=== PATIENT | female | born 1950 | race Hispanic/Latino ===

== ENCOUNTER 2017-01-06 12:04 | Emergency (ER) | payer MEDICARE ==
[2017-01-06 12:39] VITALS: TEMP 98.4; O2SAT 94
[2017-01-06] MEDS ORDERED: methylPREDNISolone SODIUM SUC 125 MG/2 ML VIAL IM ONE (12:50)
--- NOTE | 2017-01-06 12:52 | ED.PDOC ---
History of Present Illness - General Chief Complaint: General Stated Complaint: cough,dizzy Time Seen by Provider: 01/06/17 12:26 Source: patient, RN notes reviewed, Vital Signs reviewed Exam Limitations: no limitations - History of Present Illness Initial Comments: Patient comes in with c/o of cough for 2 weeks and dizziness for 3 days. She originally started with cough, fever, chills, sore throat and sinus congestion. Everything resolved except for the cough. 3 days ago she developed L ear pain and dizziness. Ear pain is improving but still having dizziness with movement. Timing/Duration: other - Improving over past 2 weeks Severity: mild Improving Factors: medication Worsening Factors: movement Associated Symptoms: cough, fever/chills, headaches Allergies/Adverse Reactions: Allergies NO KNOWN ALLERGY Allergy (Verified 11/21/14 20:53) Home Medications: Ambulatory Orders Lisinopril [Prinivil] 20 mg PO DAILY 01/26/14 Cefuroxime Axetil [Ceftin] 500 mg PO TID #21 tab 01/06/17 Review of Systems - Review of Systems Constitutional: States: see HPI EENTM: States: see HPI, ear pain - left, nose congestion - with sinus drainage, throat pain Respiratory: States: cough. Denies: short of breath, stridor, wheezing Cardiology: States: no symptoms reported Gastrointestinal/Abdominal: States: no symptoms reported Musculoskeletal: States: no symptoms reported Skin: States: no symptoms reported Neurological: States: headache - mild, frequent THAKUR's - this seems like a "normal " THAKUR for her. All other Systems: No Change from Baseline Past Medical History (General) - Patient Medical History Hx Congestive Heart Failure: No Hx Hypertension: Yes Hx Diabetes: No Surgical History: Hysterectomy - Vaccination History Hx Influenza Vaccination: No Hx Pneumococcal Vaccination: No - Social History Hx Tobacco Use: Yes Hx Alcohol Use: Yes Hx Substance Use: No Hx Substance Use Treatment: No Hx Depression: No - Female History Patient : No Family Medical History - Family History Mother Family History: No Known Physical Exam - Physical Exam General Appearance: Alert, Comfortable, No apparent distress, Well Developed, Well Groomed, Well Hydrated, Well Nourished Ears, Nose, Throat: hearing grossly normal, abnormal TM (L) - bulging with serous fluid. No erythema, pharyngeal erythema Neck: supple, lymphadenopathy (R), lymphadenopathy (L) Respiratory: lungs clear, normal breath sounds, no respiratory distress, no accessory muscle use Cardiovascular/Chest: regular rate, rhythm, no gallop, no murmur Extremity: normal inspection Neurologic: alert, normal mood/affect, oriented x 3 Skin Exam: normal color, warm/dry Comments: Vital Signs 01/06/17 12:36 Temperature 98.4 F Pulse Rate [ 93 H Left Brachial] Respiratory 20 Rate Blood Pressure 124/73 [Left Arm] O2 Sat by Pulse 94 L Oximetry Progress - Progress Progress: 01/06/17 13:01 Discussed she seems to have a resolving URI but has developed a serous otitis media that is causing her dizziness. Will give Solu-Medrol 125mg IM. Discussed should resolve on own but since it has been 2 weeks with give Rx for antibiotics to start is symptoms are not resolving over 2-4 days or if symptoms worsen. Departure - Departure Clinical Impression: Vertigo Upper respiratory infection Qualifiers: URI type: unspecified viral URI Qualified Code(s): J06.9 - Acute upper respiratory infection, unspecified; B97.89 - Other viral agents as the cause of diseases classified elsewhere Otitis media Qualifiers: Otitis media type: serous Chronicity: acute Laterality: left Recurrence: not specified as recurrent Qualified Code(s): H65.02 - Acute serous otitis media, left ear Time of Disposition: 13:04 Disposition: Discharge to Home or Self Care Condition: Good Departure Forms: ED Discharge - Pt. Copy, Patient Portal Self Enrollment Instructions: Middle Ear Infection, DI for Vertigo Diet: resume usual diet Activity: increase activity as tolerated Referrals: Ronak Angel MD [Primary Care Provider] - 1-2 Weeks Prescriptions: Cefuroxime Axetil [Ceftin] 500 mg PO TID #21 tab Home Medications: Ambulatory Orders Lisinopril [Prinivil] 20 mg PO DAILY 01/26/14 Cefuroxime Axetil [Ceftin] 500 mg PO TID #21 tab 01/06/17
[2017-01-06 13:18] VITALS: BP 111/66
== END 2017-01-06 13:17 | disposition home or self-care (01) ==
LOC: ER 12:04
DX: J06.9 Acute upper respiratory infection, unspecified (principal); H65.02 Acute serous otitis media, left ear; R42 Dizziness and giddiness; I10 Essential (primary) hypertension; Z87.891 Personal history of nicotine dependence

== ENCOUNTER → 2017-01-09 | Outpatient (CLI) | payer MEDICARE | END | disposition home or self-care (01) | LOC: GMAJ 15:01 | PROVIDERS: ATTEND Family Medicine | DX: E78.00 Pure hypercholesterolemia, unspecified (principal); I10 Essential (primary) hypertension ==

== ENCOUNTER → 2017-02-15 | Outpatient (CLI) | payer MEDICARE ==
--- NOTE | 2017-02-17 08:42 | US ---
EXAM DESCRIPTION: Carotid Duplex: Ultrasound. CLINICAL HISTORY: OCCLUSION AND STENOSIS COMPARISON: Bilateral lower extremity arterial Doppler evaluation on the same visit. TECHNIQUE: Transcutaneous scanning utilizing 2-dimensional and Doppler modes to evaluate the bilateral carotid systems and vertebral arteries. Percentage of diameter of stenosis or no stenosis recorded will be based upon NASCET criteria. FINDINGS: Peak systolic/end diastolic (CM-Sec) CCA Right 76/23 Left 90/32. ICA Right proximal 146/49, mid 124/31. Left proximal 67/23, mid 84/24. Vertebral Right 50/13 Left 45/15. ECA (PS Only) Right 106 left 77. ICA/CCA peak systolic ratio: Right 1.9 Left 0.9 ICA/CCA end diastolic ratio: Right 2.2 Left 0.7 Vertebral arteries: antegrade flow. Comments: Atherosclerotic calcification in the distal right CCA and right ICA. Area stenosis in the right CCA bulb is 48%. Diameter stenosis is 84%. Area stenosis in the proximal right ICA is 37%. Diameter stenosis is 41%. Spectral broadening and color turbulent flow in the right CCA bifurcation. Atherosclerotic calcification in the left CCA bifurcation with spectral broadening and color turbulent flow. Area stenosis in the left CCA bulb is 20%. Diameter stenosis is 44%. IMPRESSION: 1. Doppler evaluation of the bilateral carotid systems and vertebral arteries shows no hemodynamically significant stenoses. However, 2-D measurements of the right common carotid bulb indicate 84% diameter stenosis which is above the critical value of 70%. CTA evaluation is recommended. 2. Significant amount of plaque seen in the carotid arteries bilaterally. Bilateral vertebral arteries showed antegrade-cephalad flow. Electronically signed by: Martell Ricci MD 02/17/2017 8:41 AM CDT
--- NOTE | 2017-02-17 08:52 | US ---
EXAM DESCRIPTION: Extremity,Lower [place] Arteries CLINICAL HISTORY: UNSPECIFIED ATHEROSCLEROSIS OF ARTERIES COMPARISON: None. TECHNIQUE: Doppler evaluation of the bilateral lower extremity arterial flow waveforms and velocities. FINDINGS: Arterial waveforms in the right lower extremity are triphasic in the right common femoral artery and distal right femoral artery. Biphasic from the proximal right femoral artery to the peroneal artery. Monophasic in the right posterior tibial artery and dorsalis pedis artery.. Arterial waveforms in the left lower extremity are triphasic in the left common femoral artery. Biphasic from the left superior femoral artery to the left peroneal artery and also in the left dorsalis pedis artery. Monophasic in the left posterior tibial artery.. Comments: None. IMPRESSION: These Doppler measurements indicate possibility of significant atherosclerotic occlusive disease in the right calf with more focal involvement of the left posterior tibial artery as well. Significant loss of velocity in the left posterior tibial artery. Consider follow-up evaluation with CTA of the lower extremities. Electronically signed by: Martell Ricci MD 02/17/2017 8:51 AM CDT
== END | disposition home or self-care (01) ==
LOC: US 09:22
PROVIDERS: ATTEND Family Medicine
DX: I65.22 Occlusion and stenosis of left carotid artery (principal); I70.209 Unspecified atherosclerosis of native arteries of extremities, unspecified extremity

== ENCOUNTER → 2017-02-27 | Outpatient (CLI) | payer MEDICARE | END | disposition home or self-care (01) | LOC: GMAJ 12:07 | PROVIDERS: ATTEND Family Medicine | DX: M25.50 Pain in unspecified joint (principal) ==

== ENCOUNTER 2019-07-25 | Emergency (ER) | payer MEDICARE | END 2019-07-25 21:59 | disposition home or self-care (01) | DX: M54.12 Radiculopathy, cervical region (principal); M25.512 Pain in left shoulder; I25.2 Old myocardial infarction; I10 Essential (primary) hypertension; Z87.891 Personal history of nicotine dependence ==

== ENCOUNTER → 2020-02-26 | Outpatient (CLI) | payer MEDICARE ==
--- NOTE | 2020-02-27 11:31 | CT ---
EXAM DESCRIPTION: CTA Head (accession [id number]), CTA Neck (accession [id number]): Computed Tomography. CLINICAL HISTORY: CAROTID ATHEROSCLEROSIS COMPARISON: CT scan of the brain 2013. MRI scan of the brain October 2015. TECHNIQUE: Spiral, axial 1.25 mm scans through the neck soft tissues and lower and mid brain after bolus infusion of IV contrast. 2.0 mm sagittal and coronal reconstructions. HID MIP images 0.6 mm rotating axis 3D volume rendering images 0.6 mm rotating axis . Percentage of stenosis recorded will be based upon NASCET criteria. Total Exam DLP: 836 mGy-cm. This exam was performed according to our departmental CT dose-optimization program which includes automated exposure control, adjustment of the mA and/or kV according to patient size and/or use of iterative reconstruction technique; to reduce radiation dose to as low as reasonably achievable (ALARA). FINDINGS: Right common carotid normal caliber but common carotid bulb is significantly narrowed by atherosclerotic and intimal wall plaque. Approximately 57 % diameter stenosis. Also intimal wall thickening and significant calcified plaque narrowing the proximal right ICA was 70% diameter stenosis. 35% diameter stenosis of the proximal right ECA. The cervical and petrous segments of the ICA are unremarkable. Atherosclerotic calcification in the carotid siphon with varying degrees of narrowing and 30-35% diameter stenosis. Supraclinoid segment with intimal irregularities. Trifurcation of the vessel form A1 segments of the middle and anterior cerebral arteries and right posterior communicating artery which is minimally narrowed. Proximal right middle and anterior cerebral arteries with no significant narrowing and typical branching. No aneurysm, no vasculitis, no mass effect. Minimal atherosclerosis origin left common carotid remainder of the common carotid unremarkable. Minimal narrowing of the proximal left ICA by atherosclerotic plaque and intimal wall thickening. No significant narrowing in the cervical segment or petrous segment. Intermittent atherosclerotic calcifications and narrowing in the carotid siphon. Approximately 35% diameter stenosis. Trifurcation for the left posterior communicating artery, and the A1 segments of the anterior and middle cerebral arteries is negative. Proximal branches in the left anterior and middle cerebral arteries well visualized and negative. No mass effect, no aneurysms, no vasculitis. Bilateral vertebral arteries with unremarkable origins. Moderate prominence of the right vertebral artery beginning in the vascular foramina of the cervical vertebra. Bilateral PICA vessels are noted. Bilateral AICA vessels are noted and bilateral superior cerebellar arteries present. Basilar artery courses to the right of midline deforming the right posterior cerebral artery joining with the right posterior communicating artery. Small remnant from the basilar joints the dominant left posterior communicating artery to form the left posterior cerebral artery. No aneurysms, no stenoses, and no mass effect or vasculitis. Venogram phase of the study shows no abnormal dilation, filling defect/thrombosis or venous occlusion. Minimal prominence of the cortical sulci and subdural spaces, and ventricles and cisterns are physiologic for the patient's age with no mass effect or effacement. No midline shift. No abnormal enhancement. No large parenchymal, intraventricular, subarachnoid, subdural, or epidural mass or hemorrhage. No subfalcine or tonsillar herniation. No abnormal calcifications. Calvarium is intact with slight decrease in bone density. Visualized mastoid and paranasal air cells showing no significant mucosal thickening or air-fluid levels. No significant airway effacement or displacement. No parapharyngeal or paraesophageal, or paratracheal asymmetry. Symmetric enhancement in the thyroid gland. No paracervical mass or enlarged nodes. 11 x 10 x 7 mm lymph node in the right carotid space and 14 x 10 x 7 mm lymph node in the left carotid space. Margins are minimally ill-defined but no fatty stranding or fluid collection. Salivary glands symmetric and not enlarged. No enlarged nodes in the upper mediastinum. Atherosclerotic calcifications in the aorta. A 3 mm nodule right lung apex. Bilateral pleural-parenchymal scarring. No acute infiltrate pneumothorax or pleural effusion. Arthrosis atlantoaxial joint and the cervical spine. Spondylosis at C3-C4, C4-C5, C5-C6, and C6-C7. With unilateral or bilateral neural foraminal narrowing which is significantly several levels. Multiple levels of facet arthrosis. Sternoclavicular arthrosis bilaterally. IMPRESSION: 1. 70% diameter stenosis of the proximal right ICA, involving atherosclerotic plaque and intimal thickening. 57% diameter stenosis of the right common carotid bulb, also calcified plaque and intimal thickening. Bilateral 30-35% diameter stenosis in the carotid siphons. No mass effect, no aneurysm, and no intracranial vasculitis. 2. Partial venogram showing no abnormal dilation, thrombosis, or occlusion. 3. Bilateral reactive appearing mildly enlarged lymph nodes in the carotid spaces. No enhancing soft tissue mass, no airway abnormality. Correlate with clinical history. 4. 3 mm nodule in the right lung apex is not clinically significant. Entire lung was not scanned. 5. Multiple levels of spondylosis, unilateral/bilateral neural foraminal narrowing, significant at some levels. Multiple levels of facet arthrosis. Correlate for upper extremity radiculopathy. Electronically signed by: Martell Ricci MD 02/27/2020 11:30 AM CDT
== END ==
LOC: CT 08:57
DX: Z01.812 Encounter for preprocedural laboratory examination (principal); I65.21 Occlusion and stenosis of right carotid artery; R59.0 Localized enlarged lymph nodes; R91.1 Solitary pulmonary nodule; M47.892 Other spondylosis, cervical region; M48.02 Spinal stenosis, cervical region

== ENCOUNTER 2020-03-15 10:23 | Emergency (ER) | payer MEDICARE ==
--- NOTE | 2020-03-15 11:09 | RAD ---
EXAM DESCRIPTION: Chest,1 View CLINICAL HISTORY: tremor, cea postop 3 days COMPARISON: Chest radiograph dated July 25, 2019 TECHNIQUE: One view radiograph of the chest FINDINGS: Postsurgical changes of the right neck. Calcific atherosclerosis of the aortic arch. Cardiac silhouette shows normal heart size. Pulmonary vascularity is within normal limits. Linear opacities in the bilateral lung bases most compatible with atelectasis. Otherwise, lungs show no confluent infiltrates. Costophrenic angles are sharp. No pneumothorax. No acute osseous abnormality. IMPRESSION: 1. Minimal bibasilar atelectasis. Otherwise, lungs show no confluent infiltrates. 2. Other findings as above. Electronically signed by: Александр Arzola MD 03/15/2020 11:07 AM ANALYTICS LEADER
--- NOTE | 2020-03-15 12:27 | ED.PDOC ---
History of Present Illness - General Chief Complaint: General Stated Complaint: Patient believes right eyelid is drooping Time Seen by Provider: 03/15/20 10:34 Source: patient Exam Limitations: no limitations - History of Present Illness Initial Comments: The patient is a 70-year-old female presenting to the emergency room secondary to possibility of a mild droop to the right eyelid. It is not apparent upon arrival here. No other neurological changes. No difficulty with speech. No difficulty or asymmetry in facial movements. No difficulty swallowing. No difficulty moving extremities. The patient had a carotid endarterectomy done on the same side 3 days ago. There is some mild swelling around that as would be expected. There is some mild erythema but none more than expected. No fever. No nausea vomiting or diarrhea. The patient does have a tremor but apparently there is a history of a baseline tremor. No altered mental state. She did eat this morning. No fever. Timing/Duration: 1-3 hours Severity: mild Improving Factors: nothing Worsening Factors: nothing Associated Symptoms: denies symptoms Allergies/Adverse Reactions: Allergies NO KNOWN ALLERGY Allergy (Verified 03/15/20 10:50) Home Medications: Ambulatory Orders Lisinopril [Prinivil] 20 mg PO DAILY 01/26/14 Aspirin [Aspirin 81 Low Dose] 81 mg PO DAILY 03/15/20 Atorvastatin Calcium 40 mg PO DAILY 03/15/20 Clopidogrel Bisulfate [Plavix] 75 mg PO DAILY 03/15/20 Review of Systems - Review of Systems Constitutional: States: no symptoms reported EENTM: States: no symptoms reported Respiratory: States: no symptoms reported Cardiology: States: no symptoms reported Gastrointestinal/Abdominal: States: no symptoms reported Genitourinary: States: no symptoms reported Musculoskeletal: States: no symptoms reported Skin: States: see HPI Neurological: States: see HPI, anxiety Endocrine: States: no symptoms reported All other Systems: No Change from Baseline Past Medical History (General) - Patient Medical History Hx Seizures: No Hx Stroke: No Hx Dementia: No Hx Asthma: No Hx of COPD: No Hx Cardiac Disorders: Yes - Hx [place], unsure when Hx Congestive Heart Failure: No Hx Pacemaker: No Hx Hypertension: Yes Hx Thyroid Disease: No Hx Diabetes: No Hx Gastroesophageal Reflux: No Hx Renal Disease: No Hx Cancer: No Hx of HIV: No Hx Hepatitis C: No Hx MRSA: No Surgical History: Hysterectomy - Vaccination History Hx Influenza Vaccination: No Hx Pneumococcal Vaccination: Yes - Social History Hx Tobacco Use: Yes Hx Alcohol Use: Yes - occ Hx Substance Use: No Hx Substance Use Treatment: No Hx Depression: No - Female History Patient is a Female of Child Bearing Age (10 -59 yrs old): No Patient : No Family Medical History - Family History Mother Family History: No Known Physical Exam - Physical Exam General Appearance: Alert, Anxious, No apparent distress Eye Exam: bilateral normal Ears, Nose, Throat: hearing grossly normal, normal pharynx Neck: other - Mild swelling to the right side of the neck surrounding the CEA site. There is mild bruising as would be expected. Mild erythema as would be expected. No significant drainage. Respiratory: lungs clear, normal breath sounds, no respiratory distress, no accessory muscle use Cardiovascular/Chest: normal peripheral pulses, regular rate, rhythm - Borderline tachycardia, no edema Peripheral Pulses: radial,right: 2+, radial,left: 2+, dorsalis pedis,right: 2+, dorsalis pedis,left: 2+ Gastrointestinal/Abdominal: non tender, soft Rectal Exam: deferred Back Exam: no CVA tenderness, no vertebral tenderness Extremity: normal range of motion, non-tender, normal inspection, no pedal edema, normal capillary refill Neurologic: plugger II-XII nml as tested, alert, oriented x 3, other - The patient is highly anxious and does have a baseline tremor in her hands. Skin Exam: normal color - Except for bruising around the surgery site Comments: Vital Signs - 24 hr 03/15/20 03/15/20 03/15/20 10:43 10:55 11:07 Temperature 98.3 F Pulse Rate [ 118 H 116 H 107 H Right] Respiratory 24 Rate Blood Pressure 148/99 163/83 [Right Arm] O2 Sat by Pulse 99 98 Oximetry 03/15/20 11:08 Temperature Pulse Rate [ 110 H Right] Respiratory Rate Blood Pressure 140/72 [Right Arm] O2 Sat by Pulse 97 Oximetry Progress - Progress Progress: 03/15/20 12:29 The patient is a 70-year-old female presented emergency room primarily due to concern for a droop to the right eyelid. I do not believe there is any neurological deficit. She does have very mild edema to that side of the face likely due to swelling around the operative site. This will likely improve as the day goes on. Again I see no evidence of any new neurological deficits. The patient does have a very mild sinus tachycardia and vital signs are very mildly positive for a drop in blood pressure with standing. I am not going to add any IV fluids for now I do want her to drink fairly aggressively for the next 2 days however. Laboratory work is reassuring as is the chest x-ray. EKG shows a normal sinus tachycardia. The patient does have a mild elevation of her blood sugar which may be a stress response in relation to the surgery. This does need to be followed with her primary care doctor in the coming week. Follow-up with primary care doctor in the coming week. ER warnings are given for any obvious worsening. martha thompson [phone] - Results/Orders Results/Orders: Chest x-ray is clear. Rapid coronavirus test is negative. EKG shows sinus tachycardia at around 110 bpm. Normal axis. Normal R wave progression. Possible very early right bundle branch block. No ST segment or T wave changes indicative of acute ischemia. Normal QT interval. Laboratory Tests 03/15/20 03/15/20 03/15/20 10:57 10:57 11:52 WBC 6.8 RBC 4.03 L Hgb 12.7 Hct 37.2 MCV 92.2 MCH 31.4 H MCHC 34.1 RDW 13.3 Plt Count 280 MPV 9.8 Absolute Neuts (auto) 4.80 Absolute Lymphs (auto) 1.50 Absolute Monos (auto) 0.30 Absolute Eos (auto) 0.20 Absolute Basos (auto) 0.10 Neutrophils % 70.3 Lymphocytes % 21.7 Monocytes % 4.4 Eosinophils % 2.3 Basophils % 1.3 Sodium 138 Potassium 4.3 Chloride 96 L Carbon Dioxide 30 Anion Gap 16.3 BUN 18 Creatinine 0.80 BUN/Creatinine Ratio 22.5 H Random Glucose 241 H Serum Osmolality 285.5 Calcium 9.7 Magnesium 1.7 L Total Bilirubin 0.8 AST 17 ALT 13 Alkaline Phosphatase 112 Creatine Kinase 51 CK-MB (CK-2) 1.0 CK-MB (CK-2) % Not Reportable Troponin I < 0.02 B-Natriuretic Peptide 87.7 Serum Total Protein 7.6 Albumin 4.2 Globulin 3.4 Albumin/Globulin Ratio 1.2 TSH 1.85 Urine Color Yellow Urine Appearance Clear Urine pH 8.5 H Ur Specific [place] 1.020 Urine Protein Negative Urine Glucose (UA) 500 H Urine Ketones Trace Urine Blood Small H Urine Nitrite Negative Urine Bilirubin Negative Urine Urobilinogen 1.0 Ur Leukocyte Esterase Negative Urine RBC 1-3 Urine WBC 0 Ur Epithelial Cells 1-3 Urine Bacteria 0 - EKG/XRAY/CT CT Ordered: No Departure - Departure Clinical Impression: Facial edema, Sinus tachycardia, Hyperglycemia Disposition: Discharge to Home or Self Care Condition: Fair Departure Forms: ED Discharge - Pt. Copy, Patient Portal Self Enrollment Diet: regular diet Activity: increase activity as tolerated Referrals: Ronak Angel MD [Primary Care Provider] - 1-2 Weeks Home Medications: Ambulatory Orders Lisinopril [Prinivil] 20 mg PO DAILY 01/26/14 Aspirin [Aspirin 81 Low Dose] 81 mg PO DAILY 03/15/20 Atorvastatin Calcium 40 mg PO DAILY 03/15/20 Clopidogrel Bisulfate [Plavix] 75 mg PO DAILY 03/15/20 Additional Instructions: The patient is a 70-year-old female presented emergency room primarily due to concern for a droop to the right eyelid. I do not believe there is any neurological deficit. She does have very mild edema to that side of the face likely due to swelling around the operative site. This will likely improve as the day goes on. Again I see no evidence of any new neurological deficits. The patient does have a very mild sinus tachycardia and vital signs are very mildly positive for a drop in blood pressure with standing. I am not going to add any IV fluids for now I do want her to drink fairly aggressively for the next 2 days however. Laboratory work is reassuring as is the chest x-ray. EKG shows a normal sinus tachycardia. The patient does have a mild elevation of her blood sugar which may be a stress response in relation to the surgery. This does need to be followed with her primary care doctor in the coming week. Follow-up with primary care doctor in the coming week. ER warnings are given for any obvious worsening.
[2020-03-15 13:03] VITALS: O2SAT 99
[2020-03-15 13:07] VITALS: BP 145/75; TEMP 98
== END 2020-03-15 12:46 | disposition home or self-care (01) ==
LOC: ER 10:23
DX: R60.0 Localized edema (principal); R00.0 Tachycardia, unspecified; R73.9 Hyperglycemia, unspecified; I25.2 Old myocardial infarction; I10 Essential (primary) hypertension; F17.200 Nicotine dependence, unspecified, uncomplicated; Z98.890 Other specified postprocedural states; Z79.899 Other long term (current) drug therapy; Z79.82 Long term (current) use of aspirin

== ENCOUNTER 2020-03-26 16:43 | Observation (INO) | payer MEDICARE ==
[2020-03-26] MEDS ORDERED: SODIUM CHLORIDE 0.9% 1000ML 500 ML IVS ONE (17:13)
[2020-03-26] MEDS ORDERED: SODIUM CHLORIDE 0.9% 1000ML 1,000 ML IVS ONE (17:46)
[2020-03-26] MEDS ORDERED: PANTOPRAZOLE SODIUM IV 40 MG VIAL IV ONE (17:47)
[2020-03-26] MEDS ORDERED: SUCRALFATE 1 GM/10 ML 1 GM UD PO ONE (17:47)
--- NOTE | 2020-03-26 17:48 | RAD ---
EXAM: Chest,1 View CLINICAL INDICATION: 70-year-old female with shortness of breath. TECHNIQUE: Single view, AP portable chest was obtained. COMPARISON: 03/15/2020. FINDINGS: Stable cardiac and mediastinal silhouette. Heart size is normal. Lungs are clear without focal opacity, pneumothorax or pleural effusions. The visualized bones reveal diffuse demineralization and degenerative change. Stable appearance of subcentimeter focus of sclerosis within the proximal LEFT humeral head raising the possibility of enchondroma, bone island or other bony sclerosis, on examination dated 07/25/2019 appears to be slightly external to the cortex raising the possibility of soft tissue calcification or tendon calcification. This finding appears to be new since examination dated 07/25/2013. IMPRESSION: No acute cardiopulmonary abnormalities. Electronically signed by: Suly Staples MD 03/26/2020 5:47 PM PHYSICIAN INTENSIVIST
--- NOTE | 2020-03-26 19:09 | CT ---
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 PROCEDURE: Contrast-enhanced images of the abdomen and pelvis were performed utilizing 2 mm slice thickness at 2 mm interval reconstruction from the lung bases to the ischial tuberosities after the administration of IV contrast. No dosing was provided for interpretation. In addition multiplanar reformats in the coronal and sagittal plane were obtained and reviewed. An individualized dose optimization technique, Automated Exposure Control, was utilized for the performed procedure. FINDINGS: The lung bases demonstrate to be clear. Noted is the presence of a small hiatal hernia. The liver, pancreas, spleen and adrenal glands demonstrate to be unremarkable, no focal lesions are noted. The gallbladder demonstrate to be partially distended with dense material within the gallbladder fundus corresponding to cholelithiasis. No significant gallbladder wall thickening and/or dilatation of the common bile duct. The kidneys demonstrate normal uptake of contrast media. No hydronephrosis and/or stones were identified. Grossly the unopacified stomach, small bowel and large bowel demonstrate to be within normal limits. Fecal residue and underdistention within the large bowel limits the evaluation. Scattered diverticuli are noted within the sigmoid colon. The appendix is normal. The urinary bladder demonstrate to be unremarkable. The uterus is absent. The aorta demonstrate atherosclerotic disease extending into the aortic bifurcation with focal areas of significant plaque at the proximal common iliac arteries. There is no retroperitoneal lymphadenopathy. There is no evidence for ascites and/or significant abnormal fluid collections. The bone windows demonstrate bony osteopenia. Degenerative disc disease is identified at L4/L5 disc level with posterior facet hypertrophy at L3-S1. IMPRESSION: CHOLELITHIASIS. ATHEROSCLEROTIC DISEASE OF THE AORTA. DIVERTICULOSIS WITH NO EVIDENCE FOR DIVERTICULITIS. STATUS POST HYSTERECTOMY. NORMAL APPENDIX. NO ACUTE INTRA-ABDOMINAL PROCESS. Electronically signed by: Александр Paulino MD 03/26/2020 7:08 PM CANOE INSPECTOR
--- NOTE | 2020-03-26 20:19 | ED.PDOC ---
History of Present Illness - General Chief Complaint: Post Op Problems Stated Complaint: weakness, shortness of breath Time Seen by Provider: 03/26/20 16:47 Source: patient Exam Limitations: no limitations - History of Present Illness Initial Comments: The patient is a 70-year-old female presented emergency room secondary to feeling dizzy and short of breath today. Additionally she has been having what appears to be melena for the last 3 days. The patient was started on aspirin and Plavix after a carotid endarterectomy about 2 weeks ago. No chest pain. No syncope. She did get dizzy today. No palpitations. No new swelling. No stroke symptoms. No runny nose or sore throat. No dov red blood per rectum. No abdominal pain. No history of any recent stomach ulcers. Timing/Duration: other - Around 3 days Severity: mild Improving Factors: nothing Worsening Factors: nothing Associated Symptoms: malaise, shortness of breath, weakness Allergies/Adverse Reactions: Allergies NO KNOWN ALLERGY Allergy (Verified 03/15/20 10:50) Home Medications: Ambulatory Orders Lisinopril [Prinivil] 20 mg PO DAILY 01/26/14 Aspirin [Aspirin 81 Low Dose] 81 mg PO DAILY 03/15/20 Atorvastatin Calcium 40 mg PO DAILY 03/15/20 Clopidogrel Bisulfate [Plavix] 75 mg PO DAILY 03/15/20 Review of Systems - Review of Systems Constitutional: States: malaise, weakness - Generalized EENTM: States: no symptoms reported Respiratory: States: see HPI, short of breath Cardiology: States: no symptoms reported Gastrointestinal/Abdominal: States: see HPI Genitourinary: States: no symptoms reported Musculoskeletal: States: no symptoms reported Skin: States: no symptoms reported Neurological: States: see HPI Endocrine: States: no symptoms reported All other Systems: No Change from Baseline Past Medical History (General) - Patient Medical History Hx Seizures: No Hx Stroke: No Hx Dementia: No Hx Asthma: No Hx of COPD: No Hx Cardiac Disorders: Yes - Hx [place], unsure when Hx Congestive Heart Failure: No Hx Pacemaker: No Hx Hypertension: Yes Hx Thyroid Disease: No Hx Diabetes: No Hx Gastroesophageal Reflux: No Hx Renal Disease: No Hx Cancer: No Hx of HIV: No Hx Hepatitis C: No Hx MRSA: No - Vaccination History Hx Influenza Vaccination: No Hx Pneumococcal Vaccination: Yes - Social History Hx Tobacco Use: Yes Hx Alcohol Use: Yes - occ Hx Substance Use: No Hx Substance Use Treatment: No Hx Depression: No - Female History Patient : No Family Medical History - Family History Mother Family History: No Known Physical Exam - Physical Exam General Appearance: Alert, Frail, Ill Appearing Eye Exam: bilateral normal Ears, Nose, Throat: hearing grossly normal, normal pharynx Neck: non-tender, supple Respiratory: lungs clear, normal breath sounds, no respiratory distress, no accessory muscle use Cardiovascular/Chest: normal peripheral pulses, regular rate, rhythm, no edema Peripheral Pulses: radial,right: 2+, radial,left: 2+ Gastrointestinal/Abdominal: non tender, soft Rectal Exam: deferred Back Exam: no CVA tenderness, no vertebral tenderness Extremity: normal range of motion, non-tender, normal inspection, no pedal edema, normal capillary refill Neurologic: code enforcement officer II-XII nml as tested, alert, normal mood/affect, oriented x 3 Skin Exam: normal color Comments: Vital Signs - 24 hr 03/26/20 03/26/20 03/26/20 16:47 17:30 17:34 Temperature 98.3 F Pulse Rate [ 93 H 87 83 left brachial] Respiratory 24 16 16 Rate Blood Pressure 110/77 121/80 110/70 [left brachial] O2 Sat by Pulse 97 Oximetry 03/26/20 03/26/20 03/26/20 17:36 18:43 19:00 Temperature Pulse Rate [ 93 H 84 82 left brachial] Respiratory 16 16 16 Rate Blood Pressure 105/87 135/79 141/60 [left brachial] O2 Sat by Pulse 95 95 Oximetry 03/26/20 20:00 Temperature Pulse Rate [ 96 H left brachial] Respiratory 16 Rate Blood Pressure 113/68 [left brachial] O2 Sat by Pulse 96 Oximetry Progress - Progress Progress: 03/26/20 20:20 The patient is a 70-year-old female presented emergency room secondary to what is most likely melena from an upper GI bleed. The patient is feeling much better after a liter and a half of crystalloid. Blood pressures have improved. The patient has not had any melanotic or bloody bowel movements since her arrival here. Her vascular surgeon, Dr. Sinha, was contacted and is okay with her going off of the aspirin and Plavix at least short-term. The patient can be restarted back on the aspirin after the weekend. The patient is being started on Carafate and Protonix as well. Dr. Amaro has been contacted and made aware of the patient here as well. The patient will be admitted for further monitoring. It is expected that the patient's H&H will likely continue to decrease slightly over the next few days as the blood thinners wears off. It is likely that she will require a unit or 2 of packed red blood cells before she is able to go home. She will likely be set up for endoscopy as an outpatient as long as that is the case. Obviously if the patient develops uncontrollable bleeding, then she will have to be sent for an emergent endoscopy. Obviously transfer options are extremely limited at this time given the burden of coronavirus on hospitals in the region. For this reason the patient has not being transferred for specialty evaluation at this time. This has been discussed with the patient as well as with our general surgeon and hospitalist. The patient will be admitted for continued care. martha thompson [id number] 03/26/20 20:26 - Results/Orders Results/Orders: CT scan abdomen pelvis shows no acute pathology. See report for details. Chest x-ray shows no definitive acute pathology. EKG shows sinus tachycardia at 102 bpm. Normal axis. Q waves in inferior leads. Normal R wave progression. Normal QT interval. No ST segment or T wave changes indicative of acute ischemia. Laboratory Tests 03/26/20 03/26/20 03/26/20 17:34 17:34 17:34 WBC 7.8 RBC 2.98 L Hgb 9.6 L Hct 27.3 L MCV 91.5 MCH 32.1 H MCHC 35.0 RDW 13.8 Plt Count 314 MPV 9.9 Absolute Neuts (auto) 4.90 Absolute Lymphs (auto) 2.00 Absolute Monos (auto) 0.50 Absolute Eos (auto) 0.20 Absolute Basos (auto) 0.20 H Neutrophils % 62.8 Lymphocytes % 25.2 Monocytes % 6.5 Eosinophils % 3.1 Basophils % 2.4 H PT 9.7 INR < 1.00 PTT (SP) 23.6 Sodium 136 Potassium 4.3 Chloride 100 L Carbon Dioxide 27 Anion Gap 13.3 BUN 32 H Creatinine 1.05 BUN/Creatinine Ratio 30.5 H Random Glucose 123 H Serum Osmolality 280.2 Lactic Acid Calcium 9.4 Magnesium 1.8 Total Bilirubin 0.3 AST 13 ALT 10 Alkaline Phosphatase 98 Creatine Kinase 30 CK-MB (CK-2) 0.9 CK-MB (CK-2) % Not Reportable Troponin I < 0.02 B-Natriuretic Peptide 19.3 Serum Total Protein 6.6 Albumin 3.7 Globulin 2.9 Albumin/Globulin Ratio 1.3 Lipase 36 TSH 3.74 Urine Color Urine Appearance Urine pH Ur Specific [place] Urine Protein Urine Glucose (UA) Urine Ketones Urine Blood Urine Nitrite Urine Bilirubin Urine Urobilinogen Ur Leukocyte Esterase Urine RBC Urine WBC Ur Epithelial Cells Urine Bacteria Stool Occult Blood 03/26/20 03/26/20 03/26/20 17:34 18:00 18:53 WBC RBC Hgb Hct MCV MCH MCHC RDW Plt Count MPV Absolute Neuts (auto) Absolute Lymphs (auto) Absolute Monos (auto) Absolute Eos (auto) Absolute Basos (auto) Neutrophils % Lymphocytes % Monocytes % Eosinophils % Basophils % PT INR PTT (SP) Sodium Potassium Chloride Carbon Dioxide Anion Gap BUN Creatinine BUN/Creatinine Ratio Random Glucose Serum Osmolality Lactic Acid 1.2 Calcium Magnesium Total Bilirubin AST ALT Alkaline Phosphatase Creatine Kinase CK-MB (CK-2) CK-MB (CK-2) % Troponin I B-Natriuretic Peptide Serum Total Protein Albumin Globulin Albumin/Globulin Ratio Lipase TSH Urine Color Yellow Urine Appearance Clear Urine pH 6.5 Ur Specific [place] 1.020 Urine Protein Negative Urine Glucose (UA) Negative Urine Ketones Negative Urine Blood Negative Urine Nitrite Negative Urine Bilirubin Negative Urine Urobilinogen 0.2 Ur Leukocyte Esterase Negative Urine RBC 1-3 Urine WBC 0 Ur Epithelial Cells 5-10 Urine Bacteria Rare Stool Occult Blood Positive H Departure - Departure Clinical Impression: Upper GI bleed Disposition: Admit Patient Departure Forms: ED Discharge - Pt. Copy, Patient Portal Self Enrollment Referrals: Rnoak Angel MD [Primary Care Provider] - 1-2 Weeks Home Medications: Ambulatory Orders Lisinopril [Prinivil] 20 mg PO DAILY 01/26/14 Aspirin [Aspirin 81 Low Dose] 81 mg PO DAILY 03/15/20 Atorvastatin Calcium 40 mg PO DAILY 03/15/20 Clopidogrel Bisulfate [Plavix] 75 mg PO DAILY 03/15/20 Decision To Admit - Decistion To Admit Decision to Admit Reason: Medical Nature Decision to Admit Date: 03/26/20 Decision to Admit Time: 20:25
--- NOTE | 2020-03-26 21:59 | HP ---
SUPERVISING PHYSICIAN: Maxime Saldaña MD CHIEF COMPLAINT: Dizzy and abdominal pain with bloody stools. HISTORY OF PRESENT ILLNESS: This is a 70-year-old female patient who came to the Emergency Room today due to some dizziness as well as concerns about the blood in her stool. About two weeks ago, she had a right carotid endarterectomy per Dr. Dutta at [place]. She has had melena for the last three days. Postoperatively, she was put on Plavix and aspirin. Today, she was somewhat dizzy, but there were no complications, no stroke-like symptoms. She came to the Emergency Room and her vital signs were temperature 98.3, heart rate 93, blood pressure 110/77, respiratory rate 24, O2 saturation 97%. Lab studies showed WBC 7.8, hemoglobin 9.6, hematocrit 27.3. About three hours after her CBC was drawn, another H&H was done and it was 9.4 and 27.2. Her coagulation studies were within normal limits. Her electrolytes were basically within normal limits. Liver enzymes were unremarkable. TSH 3.74. Urinalysis was unremarkable. Stool for occult blood was positive. Her chest x-ray showed no acute cardiopulmonary abnormalities. Her abdominal CT showed cholelithiasis, atherosclerotic disease of the aorta, diverticulosis with no evidence for diverticulitis, status post hysterectomy, normal appendix, no acute intraabdominal process. Dr. Saldaña in the Emergency Room called Dr. Dutta and he felt that we could monitor here at the hospital and there were no available rooms in the surrounding area. Dr. Saldaña also called Dr. Amaro and said if absolutely needed, an upper GI could be done tomorrow here at our hospital. The patient was given some Protonix and fluids as well as some sucralfate and she was placed in observation in the hospital. PAST MEDICAL HISTORY: 1. Hyperlipidemia. 2. Hypertension. PAST SURGICAL HISTORY: 1. Hysterectomy. 2. Right carotid endarterectomy. OUTPATIENT MEDICATIONS: 1. Aspirin. 2. Calcium. 3. Plavix. 4. Vitamin D2. 5. Atorvastatin. 6. Lisinopril. ALLERGIES: NO KNOWN DRUG ALLERGIES. SOCIAL HISTORY: She lives in [place]. She is . She has a history of tobacco use. She drinks alcohol on a social basis. There is no history of illegal drug use. REVIEW OF SYSTEMS: GENERAL: Positive for fatigue, negative for weight changes. HEENT: Negative for sinus symptoms, ear pain, vision changes or sore throat. RESPIRATORY: Negative for wheezing, coughing or shortness of breath. CARDIAC: Negative for chest pain, palpitations or tachycardia. GASTROINTESTINAL: As per history of present illness. GENITOURINARY: Negative for hematuria, dysuria or polyuria. MUSCULOSKELETAL: Negative for arthralgias, myalgias. SKIN: Negative for lesions or rashes. NEUROLOGIC: Positive for dizziness. Negative for headache or seizures. PHYSICAL EXAMINATION: VITAL SIGNS: Temperature 97.5, heart rate 99, blood pressure 113/69, respiratory rate 18, O2 saturation 98% on room air. GENERAL: This is a 70-year-old female who is lying in her hospital bed. She is in no acute distress. HEENT: Normocephalic, atraumatic. Pupils are equal and reactive. Oropharynx is clear. NECK: Supple without mass. She has the right carotid endarterectomy. RESPIRATORY: Essentially clear to auscultation bilaterally. CARDIOVASCULAR: Regular rate and rhythm. GASTROINTESTINAL: Abdomen is soft, nondistended, nontender. Bowel sounds are positive. RECTAL: Deferred. BACK: Deferred. EXTREMITIES: No cyanosis, clubbing or edema. NEUROLOGIC: Awake, alert and oriented times three. SKIN: Warm, pink and dry. LABORATORY: Labs and films are as per history of present illness. IMPRESSION: 1. Upper gastrointestinal bleed. 2. Recent right carotid endarterectomy on Plavix and aspirin postoperatively. 3. Hypertension. 4. Hyperlipidemia. PLAN: The patient has been placed in observation. I will do q.4h. H&Hs and we will monitor her labs closely. I have done morning lab. If we have any issues, we can call Dr. Dutta in [place]. Right now, she is fairly stable. I have done routine admission guidelines. She will be on Protonix for ulcer prophylaxis. I will hold on any anticoagulants for DVT prophylaxis. According to Dr. Dutta, the patient should have her Plavix and aspirin held and her aspirin can be re-started on Monday or Monday. She is to call him for a followup appointment as soon as she is discharged. We will follow and treat as needed. #[id number] [facility]
[2020-03-26] MEDS ORDERED: ACETAMINOPHEN 325 MG TAB PO PRN (23:09)
[2020-03-26] MEDS ORDERED: ONDANSETRON INJ 4 MG/2 ML VIAL IV PRN (23:09)
[2020-03-26] MEDS ORDERED: SODIUM CHLORIDE 0.9% (FLUSH) 10 ML SYG IV PRN (23:09)
[2020-03-26] MEDS ORDERED: IV SET AND CAP CHANGE INJ INJ SCH (23:30)
[2020-03-27] MEDS ORDERED: PANTOPRAZOLE SODIUM IV 40 MG VIAL IV SCH (06:30)
[2020-03-27] MEDS ORDERED: LISINOPRIL 10 MG TAB ONE (08:51)
[2020-03-27] MEDS ORDERED: NON-FORMULARY MEDICATION 1 EA MIS (Lisinopril [Prinivil] 20 MG) PO SCH (09:00)
[2020-03-27] MEDS ORDERED: LISINOPRIL 10 MG TAB PO SCH (09:00)
[2020-03-27] MEDS ORDERED: SODIUM CHLORIDE 0.9% (FLUSH) 10 ML SYG IV SCH (09:00)
[2020-03-27] MEDS ORDERED: NON-FORMULARY MEDICATION 1 EA MIS (Atorvastatin Calcium [Atorvastatin Calcium] 40 MG) PO SCH (09:00)
[2020-03-27 10:08] VITALS: O2SAT 98
[2020-03-27 14:31] VITALS: BP 112/71; TEMP 97.7
--- NOTE | 2020-03-28 13:27 | DS ---
SUPERVISING PHYSICIAN: Maxime Saldaña MD ADMISSION DIAGNOSES: 1. Upper gastrointestinal bleed. 2. Recent right carotid endarterectomy on Plavix and aspirin postoperatively. 3. Hypertension. 4. Hyperlipidemia. DISCHARGE DIAGNOSES: 1. Upper gastrointestinal bleed, referred to Dr. Amaro for further workup as an outpatient. 2. Diverticulosis as noted on CT without any evidence of diverticulitis. 3. Cholelithiasis without any CT findings findings to indicate acute cholecystitis. 4. Recent right carotid endarterectomy on Plavix and aspirin postoperatively. 5. Hypertension. 6. Hyperlipidemia. REASON FOR HOSPITALIZATION: This is a 70-year-old female patient who came to the Emergency Room today due to some dizziness as well as concerns about the blood in her stool. About two weeks ago, she had a right carotid endarterectomy per Dr. Dutta at [place]. She has had melena for the last three days. Postoperatively, she was put on Plavix and aspirin. Today, she was somewhat dizzy, but there were no complications, no stroke-like symptoms. She came to the Emergency Room and her vital signs were temperature 98.3, heart rate 93, blood pressure 110/77, respiratory rate 24, O2 saturation of 97% Lab studies showed WBC 7.8, hemoglobin 9.6, hematocrit 27.3. About three hours after her CBC was drawn, another H&H was done and it was 9.4 and 27.2. Her coagulation studies were within normal limits. Her electrolytes were basically within normal limits. Liver enzymes were unremarkable. TSH 3.74. Urinalysis was unremarkable. Stool for occult blood was positive. Her chest x-ray showed no acute cardiopulmonary abnormalities. Her abdominal CT showed cholelithiasis, atherosclerotic disease of the aorta, diverticulosis with no evidence for diverticulitis, status post hysterectomy, normal appendix, no acute intraabdominal process. Dr. Saldaña in the Emergency Room called Dr. Dutta and he felt that we could monitor here at the hospital and there were no available rooms in the surrounding area. Dr. Saldaña also called Dr. Amaro and said if absolutely needed, an upper GI could be done tomorrow here at our hospital. The patient was given some Protonix and fluids as well as some sucralfate and she was placed in observation in the hospital. LABORATORY: Discharge hemoglobin 8.9, hematocrit 26.0. She was showing a stable H&H 35 hours post discharge. She did come in with an H&H of 9.6 and 27.3. She had no obvious active bleeding. She did have occult blood on stool that was positive. Coagulation studies showed normal PT/PTT. Chemistries on discharge showed normal electrolytes with creatinine of 0.82, lactic acid normal at 1.2, liver functions within normal limits. TSH normal. Urinalysis was unremarkable. MICROBIOLOGY: Respiratory panel was negative for all bacterial and viral targets assess including Covid and influenza. RADIOLOGY: Abdominal/pelvic CT with contrast showed cholelithiasis, diverticulosis without evidence of diverticulitis. No other acute intraabdominal processes were noted. HOSPITAL COURSE: Ms. York was admitted for close monitoring with concerns for an upper GI bleed. Her H&H was showing to be stable through the hospitalization. She had recurrence of any bleeding, no evidence of acute loss and was seen in consultation by Dr. Amaro who recommended the patient was stable to discharge home to followup for outpatient EGD and colonoscopy. Her discharge vital signs showed she was afebrile at 97.9, pulse 90, blood pressure 103/67 sitting, standing was 112/71 and supine was 111/71 with respirations at 16. Oxygen saturation 98% on room air. PLAN: The patient is discharged on 03/27/[address] Amaro on Monday at 11:00 AM as well as Dr. Angel in one to two weeks or sooner as needed. She is to resume her usual diet, increase activities as tolerated, resume home medications except for her aspirin which she was to hold until Monday and then hold her Plavix until she was told to resume by Dr. Amaro or Dr. Angel. She will need followup with Dr. Dutta, surgeon who did her carotids to insure she still needs to be on the Plavix and make sure she does not lose tough in regards to continuation or stopping of the Plavix and aspirin. CONDITION ON DISCHARGE: Stable and improved. DISPOSITION: The patient was discharged home. [facility][id number] [facility]
--- NOTE | 2020-05-04 13:59 | CONS ---
DATE OF CONSULTATION: 03/26/20 REASON FOR CONSULTATION: GI bleed. HISTORY OF PRESENT ILLNESS: This a 70-year-old woman who presented to the Emergency Department with some dizziness and some blood in her stool. She had a CEA a couple of weeks ago and was on some blood thinners. She had some black stool for about 3 days. She came in and her hemoglobin was 9.6, so I am called and asked to evaluate her for GI bleed on blood thinner. PAST MEDICAL HISTORY: 1. Hyperlipidemia. 2. Hypertension. 3. Carotid stenosis. PAST SURGICAL HISTORY: 1. Hysterectomy. 2. Right carotid endarterectomy. MEDICATIONS: 1. Aspirin. 2. Calcium. 3. Plavix. 4. Vitamin D. 5. Lisinopril. 6. Statin. ALLERGIES: NO KNOWN DRUG ALLERGIES. FAMILY HISTORY: Noncontributory. SOCIAL HISTORY: She uses tobacco, drinks socially, no history of illicit drug use. REVIEW OF SYSTEMS: CONSTITUTIONAL: No fevers, no chills. HEENT: No headache, visual changes, sore throat. RESPIRATORY: No cough or wheeze. CARDIOVASCULAR: No chest pain or palpitations. GASTROINTESTINAL: No abdominal pain. There is black stool per the patient. GENITOURINARY: No frequency, dysuria or hematuria. EXTREMITIES: No complaints. PHYSICAL EXAMINATION: VITAL SIGNS: Afebrile. Vital signs are normal. Non-tachycardic. GENERAL: The patient is alert and oriented x3. CHEST: Clear and equal bilaterally. HEART: Regular. ABDOMEN: Obese, soft, nontender. There has been no repeated dark stool. EXTREMITIES: No edema. LABORATORY: Repeat hematocrit 27. Coagulation studies are normal. CMP is relatively normal. IMPRESSION/RECOMMENDATION : They called potentially to transfer the patient, but there were no rooms in the surrounding area. Of course, if she has a dov bleed, I do not do therapeutics at this time. Given that her vital signs are stable and she is not putting out blood, she likely does not have a completely active GI bleed and if it is controlled bleed, she can be evaluated here of course as elective procedure. The patient will be admitted and observed. If she does have significant bleeding, she can be transfused, stabilized and we can arrange transfer. [facility][id number] [facility]
== END 2020-03-27 14:26 | disposition home or self-care (01) ==
LOC: ER 16:43 → MS 21:57
PROVIDERS: ADMIT Nurse Practitioner Acute Care; ATTEND Nurse Practitioner Family
DX: K92.1 Melena (principal); K57.30 Diverticulosis of large intestine without perforation or abscess without bleeding; K80.20 Calculus of gallbladder without cholecystitis without obstruction; I10 Essential (primary) hypertension; E78.5 Hyperlipidemia, unspecified; I70.0 Atherosclerosis of aorta; I25.2 Old myocardial infarction; Z20.828 Contact with and (suspected) exposure to other viral communicable diseases; Z98.890 Other specified postprocedural states; Z79.02 Long term (current) use of antithrombotics/antiplatelets; Z79.82 Long term (current) use of aspirin; Z79.899 Other long term (current) drug therapy; Z87.891 Personal history of nicotine dependence
CPT/HCPCS: 96374; 96376; J7030 ×2; A4216; 82270; 82553; 80053 ×2; 85014 ×4; 85018 ×4; 36415 ×3; 81001; 85025 ×2; 82550; 83690; 83735 ×2; 85730; 85610; 84443; 84484; 83880; 36416; 83605; 71045; 74177; 94760; 99285; 93005; G0378; 87581; 87486; 87633; 87635

== ENCOUNTER 2020-04-30 05:28 | Day surgery (SDC) | payer MEDICARE ==
[2020-04-30] MEDS ORDERED: LACTATED RINGERS 1,000 ML ONE (06:40)
[2020-04-30] MEDS ORDERED: PROPOFOL 200 MG/20 ML VIAL IV ONE (07:00)
[2020-04-30] MEDS ORDERED: fentaNYL CITRATE INJ 50 MCG/ML 2 ML AMP ONE ×2 (07:00→10:56)
[2020-04-30] MEDS ORDERED: LIDOCAINE 1% 10 ML VIAL INJ ONE (07:00)
--- NOTE | 2020-04-30 12:06 | OP ---
DATE OF PROCEDURE: 04/30/20 PREOPERATIVE DIAGNOSIS: 1. Screening colonoscopy. 2. Reflux. POSTOPERATIVE DIAGNOSIS: 1. Normal stomach. 2. Colon polyps. PROCEDURE: 1. EGD. 2. Colonoscopy. SURGEON: Ronak Amaro MD ANESTHESIA: General. FINDINGS: EGD was completely normal. Colonoscopy with 2 flat, about 3.5 mm polyps in the mid Travasol and 2 much smaller polyps in the proximal transverse colon, one pedunculated polyp in the rectum. COMPLICATIONS: None. ESTIMATED BLOOD LOSS: Minimal. PLAN: Discharge. INDICATION: As stated. PROCEDURE: General anesthesia was induced in the lateral position. With bite block in place, the EGD was passed throughout the esophagus and into the stomach and duodenum without difficulty. Upon careful withdrawal, all surfaces appeared normal. Retroflexion was normal with no significant hiatal hernia, as was the GE junction and esophagus. She tolerated that procedure. She was then turned and properly positioned. She remained comfortable. The colonoscope was inserted. We identified a polyp in the rectum. We left that there for now and proceeded. We got all the way to the cecum and upon withdrawal, there 2 small polyps in the proximal transverse colon. These were removed with forceps. In the mid transverse colon, there were 2 larger, flat, we attempted with snare, but could not get it up because they were too flat, so we proceeded to remove. They were approximately 3 to 4 mm. We removed them sequentially with multiple bites and got the entire polyps removed. These were 2 in about the same area across from the colon. Upon careful withdrawal, no additional polyps were seen except for right in the mid distal rectum where there was the polyp we saw going in. This was approximately 4 mm. It was removed with a snare and successfully retrieved through the suction. Retroflexion was normal but for small, non-complicated hemorrhoids. The patient tolerated the procedure and was taken to Recovery to be discharged. #[id number] c: Ronak Angel MD [facility]
[2020-04-30 12:38] VITALS: BP 124/68; TEMP 96.6; O2SAT 97
== END 2020-04-30 12:43 | disposition home or self-care (01) ==
LOC: AMB 05:28
PROVIDERS: ATTEND Surgery
DX: K92.1 Melena (principal); D12.3 Benign neoplasm of transverse colon; D12.8 Benign neoplasm of rectum; K21.9 Gastro-esophageal reflux disease without esophagitis; K64.8 Other hemorrhoids; I10 Essential (primary) hypertension; Z90.710 Acquired absence of both cervix and uterus; Z79.82 Long term (current) use of aspirin; Z79.899 Other long term (current) drug therapy
CPT/HCPCS: 00813; 43235; 45380; 45385; 88305; J3010; J3490; J7120